=== PATIENT | male | born 1995 | race Caucasian/White ===

== ENCOUNTER 2017-08-25 22:20 | Inpatient (IN) ==
--- NOTE | 2017-08-25 22:33 | Emergency Department Note ---
Disposition Clinical Impression: Psychosis, Delusion Disposition: Transfer Psychiatric Hosp Time of Disposition: 03:25 Psych HPI - General Chief Complaint: ED Altered Mental Status Time Seen by Provider: 08/25/17 22:32 Source: EMS Mode of arrival: EMS Limitations: other Nursing Notes Reviewed: Yes Vital Signs Reviewed: Yes - History of Present Illness HPI Narrative: Patient presents to the ED with the chief complaint of apparent psychosis. Patient reports that he is a son of God and wants to spread his loved to the rest the world. 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 He states that he started reading from an early age and he "learned all of the knowledge in the world." He states he then started seeking knowledge from historical yarsanism references and "unlocked the keys to the kingdom." Denies any SI or HI. He states that he has used drugs in the past but none recently. Denies any complaints currently - Related Data Allergies Allergy/AdvReac Type Severity Reaction Status Date / Time No Known Allergies Allergy Verified 08/26/17 00:32 Review of Systems: As reviewed in the HPI. All other systems reviewed are negative or normal. Past Medical History - Past Medical History Attestation: Yes The following information was validated with the patient. Source: patient Medical history: Reports: no medical history Psychiatric history: Reports: ADHD - Social History Smoking Status: Current every day smoker Smokeless Tobacco Status: No Alcohol use: Reports: none Drug use: Reports: marijuana Physical Exam CONSTITUTIONAL: [well appearing in no acute distress] SKIN: [Warm, dry, and intact without rash] EYES: [extraocular movements are grossly intact, clear conjunctiva] HENT: [Normocephalic, atraumatic, moist mucus membranes] NECK: [no obvious swelling, normal range of motion] PULMONARY: [normal chest rise and fall, no respiratory distress or stridor CARDIOVASCULAR: [regular rate, distal extremities are warm and well perfused] NEUROLOGIC: [normal speech, moves all extremities] MUSCULOSKELETAL: [no gross deformities, atraumatic] PSYCHIATRIC: [Delusional, no auditory or visual hallucinations, poor eye contact , flight of ideas] - General Limitations: altered mental status General appearance: alert, anxious Course Course Narrative: Patient presenting with apparent psychosis. We will get labs and admit to psychiatry. Vital Signs Temperature 99.0 F 08/25/17 22:22 Pulse Rate 108 08/25/17 22:22 Respiratory Rate 22 08/25/17 22:22 Blood Pressure 143/103 08/25/17 22:22 O2 Sat by Pulse Oximetry 98 08/25/17 22:22 Temperature 98.0 F 08/26/17 04:35 Pulse Rate 70 08/26/17 04:35 Respiratory Rate 18 08/26/17 04:35 Blood Pressure 129/90 08/26/17 04:35 O2 Sat by Pulse Oximetry 97 08/25/17 23:45 Oxygen Delivery Oxygen Delivery Room Air Psych - Lab Data Result diagrams: 08/25/17 22:41 08/25/17 22:41 Lab Results 08/25/17 08/25/17 08/25/17 Range/Units 22:20 22:20 22:41 WBC 13.6 H (4.3-11.1) K/mcL RBC 5.78 H (4.19-5.50) M/mcL Hgb 15.0 (12.9-16.9) g/dL Hct 42.1 (37.5-50.1) % MCV 72.8 L (83.0-100.0) fL MCH 26.0 L (28.0-33.3) pg MCHC 35.6 H (31.6-35.5) g/dL RDW 13.0 (11.5-14.5) % Plt Count 417 H (140-400) K/mcL MPV 8.8 L (9.4-12.4) fL Immature Gran % 0.3 (0-4) % Seg Neutrophils % 74.5 % Lymphocytes % 19.5 % Monocytes % 5.4 % Eosinophils % 0.1 % Basophils % 0.2 % Neutrophils # 10.2 H (1.6-8.9) K/mcL Lymphocytes # 2.7 (0.6-4.6) K/mcL Monocytes # 0.7 (0.0-1.3) K/mcL Eosinophils # 0.0 (0.0-0.6) K/mcL Basophils # 0.0 (0.0-0.2) K/mcL Sodium (136-145) mEq/L Potassium (3.5-5.1) mEq/L Chloride (98-107) mEq/L Carbon Dioxide (23-29) mEq/L BUN (6-20) mg/dL Creatinine (0.70-1.30) mg/dL Est GFR ( Amer) (> 60) Est GFR (Non-Af Amer) (> 60) BUN/Creatinine Ratio (6-26) Glucose (70-105) mg/dL Calculated Osmolality (280-300) Calcium (8.6-10.3) mg/dL Urine Color Dark Yellow (Yellow) Urine Clarity Turbid A (Clear) Urine pH 6.5 (5.0-8.0) pH Units Ur Specific [place] 1.018 (1.010-1.025) Urine Protein 30 H (Neg-Trace) mg/dL Urine Glucose (UA) Normal (Normal) mg/dL Urine Ketones Negative (Negative) mg/dL Urine Blood Negative (Negative) Urine Nitrite Negative (Negative) Urine Bilirubin Negative (Negative) Urine Urobilinogen Normal (Normal) mg/dL Ur Leukocyte Esterase Negative (Negative) Urine Microscopic WBC 0-3 (0-3) per hpf Ur Squamous Epith Cells Moderate H (None-Few) per lpf Urine Bacteria None Seen (None-Few) per hpf Hyaline Casts Few (None-Few) per lpf Urine Mucus Many H (Few) Salicylates (15.0-30.0) mg/dL Urine Opiates Screen Negative (Eufidq=756) ng/mL Acetaminophen (10-20) mcg/mL Ur Barbiturates Screen Negative (Bpnuie=542) ng/mL Ur Phencyclidine Scrn Negative (Cutoff=25) ng/mL Ur Amphetamines Screen Negative (Ctbmgs=1826) ng/mL U Benzodiazepines Scrn Negative (Adrusz=828) ng/mL Urine Cocaine Screen Negative (Cutoff= 300) ng/mL U Marijuana (THC) Screen Positive H (Cutoff = 50) ng/mL Ethyl Alcohol (Less than 10) mg/dL 08/25/17 Range/Units 22:41 WBC (4.3-11.1) K/mcL RBC (4.19-5.50) M/mcL Hgb (12.9-16.9) g/dL Hct (37.5-50.1) % MCV (83.0-100.0) fL MCH (28.0-33.3) pg MCHC (31.6-35.5) g/dL RDW (11.5-14.5) % Plt Count (140-400) K/mcL MPV (9.4-12.4) fL Immature Gran % (0-4) % Seg Neutrophils % % Lymphocytes % % Monocytes % % Eosinophils % % Basophils % % Neutrophils # (1.6-8.9) K/mcL Lymphocytes # (0.6-4.6) K/mcL Monocytes # (0.0-1.3) K/mcL Eosinophils # (0.0-0.6) K/mcL Basophils # (0.0-0.2) K/mcL Sodium 136 (136-145) mEq/L Potassium 3.3 L (3.5-5.1) mEq/L Chloride 102 (98-107) mEq/L Carbon Dioxide 22 L (23-29) mEq/L BUN 4 L (6-20) mg/dL Creatinine 0.98 (0.70-1.30) mg/dL Est GFR ( Amer) > 60 (> 60) Est GFR (Non-Af Amer) > 60 (> 60) BUN/Creatinine Ratio 4 L (6-26) Glucose 103 (70-105) mg/dL Calculated Osmolality 279 L (280-300) Calcium 9.9 (8.6-10.3) mg/dL Urine Color (Yellow) Urine Clarity (Clear) Urine pH (5.0-8.0) pH Units Ur Specific [place] (1.010-1.025) Urine Protein (Neg-Trace) mg/dL Urine Glucose (UA) (Normal) mg/dL Urine Ketones (Negative) mg/dL Urine Blood (Negative) Urine Nitrite (Negative) Urine Bilirubin (Negative) Urine Urobilinogen (Normal) mg/dL Ur Leukocyte Esterase (Negative) Urine Microscopic WBC (0-3) per hpf Ur Squamous Epith Cells (None-Few) per lpf Urine Bacteria (None-Few) per hpf Hyaline Casts (None-Few) per lpf Urine Mucus (Few) Salicylates < 2.5 L (15.0-30.0) mg/dL Urine Opiates Screen (Pfxtyr=708) ng/mL Acetaminophen < 10 L (10-20) mcg/mL Ur Barbiturates Screen ([place]=812) ng/mL Ur Phencyclidine Scrn (Cutoff=25) ng/mL Ur Amphetamines Screen ([place]=0596) ng/mL U Benzodiazepines Scrn (Zsfdgc=792) ng/mL Urine Cocaine Screen (Cutoff= 300) ng/mL U Marijuana (THC) Screen (Cutoff = 50) ng/mL Ethyl Alcohol < 10 (Less than 10) mg/dL Psychiatric Medical Clearance - Medical Clearance Checklist Medical History: No Social History Section defined Current Vitals: Last Vital Signs Temp 98.0 F 08/26/17 04:35 Pulse 70 08/26/17 04:35 Resp 18 08/26/17 04:35 BP 129/90 08/26/17 04:35 Pulse Ox 97 08/25/17 23:45 Psychiatric Lab Panel: Drug Levels and Toxicity 08/25/17 08/25/17 22:20 22:41 Urine Opiates Screen Negative Acetaminophen < 10 L Ur Barbiturates Screen Negative Ur Phencyclidine Scrn Negative Ur Amphetamines Screen Negative U Benzodiazepines Scrn Negative Urine Cocaine Screen Negative U Marijuana (THC) Screen Positive H Ethyl Alcohol < 10 Abnormal Labs: Abnormal lab results WBC 13.6 K/mcL (4.3-11.1) H 08/25/17 22:41 RBC 5.78 M/mcL (4.19-5.50) H 08/25/17 22:41 MCV 72.8 fL (83.0-100.0) L 08/25/17 22:41 MCH 26.0 pg (28.0-33.3) L 08/25/17 22:41 MCHC 35.6 g/dL (31.6-35.5) H 08/25/17 22:41 Plt Count 417 K/mcL (140-400) H 08/25/17 22:41 MPV 8.8 fL (9.4-12.4) L 08/25/17 22:41 Neutrophils # 10.2 K/mcL (1.6-8.9) H 08/25/17 22:41 Potassium 3.3 mEq/L (3.5-5.1) L 08/25/17 22:41 Carbon Dioxide 22 mEq/L (23-29) L 08/25/17 22:41 BUN 4 mg/dL (6-20) L 08/25/17 22:41 BUN/Creatinine Ratio 4 (6-26) L 08/25/17 22:41 Calculated Osmolality 279 (280-300) L 08/25/17 22:41 Urine Clarity Turbid (Clear) A 08/25/17 22:20 Urine Protein 30 mg/dL (Neg-Trace) H 08/25/17 22:20 Ur Squamous Epith Cells Moderate per lpf (None-Few) H 08/25/17 22:20 Urine Mucus Many (Few) H 08/25/17 22:20 Salicylates < 2.5 mg/dL (15.0-30.0) L 08/25/17 22:41 Acetaminophen < 10 mcg/mL (10-20) L 08/25/17 22:41 U Marijuana (THC) Screen Positive ng/mL (Cutoff = 50) H 08/25/17 22:20 Attestation Statement - Attestation Attestation: I examined this patient and my medical decision-making was reviewed with the Resident Physician. I agree with the documented findings, disposition and treatment plan as described except to the extent set forth below.
[2017-08-25 22:46] LABS: Bilirubin,Urine Negative (Negative); Blood,Urine Negative (Negative); Clarity,Urine Turbid (Clear); Color,Urine Dark Yellow (Yellow); Glucose,Urine (UA) Normal (Normal); Ketones,Urine Negative (Negative); Leukocyte Esterase,Urine Negative (Negative); Nitrite,Urine Negative (Negative); PH,Urine 6.5 pH Units (5.0-8.0); Protein,Urine 30 mg/dL (Neg-Trace); Specific Gravity,Urine 1.018 (1.010-1.025); Urobilinogen,Urine Normal (Normal)
[2017-08-25 22:48] LABS: Bacteria,Urine None Seen per hpf (None-Few); Hyaline Casts,Urine Few per lpf (None-Few); Squamous Epithelial Cell,Urine Moderate per lpf (None-Few); WBC,Urine 0-3 per hpf (0-3)
[2017-08-25 22:51] LABS: Basophils % 0.2 %; Eosinophils % 0.1 %; Hematocrit 42.1 % (37.5-50.1); Immature Granulocytes % 0.3 % (0-4); Lymphocytes # 2.7 K/mcL (0.6-4.6); Lymphocytes % 19.5 %; Mean Corpuscular HGB Conc 35.6 g/dL (31.6-35.5); Mean Corpuscular Volume 72.8 fL (83.0-100.0); Mean Platelet Volume 8.8 fL (9.4-12.4); Monocytes # 0.7 K/mcL (0.0-1.3); Monocytes % 5.4 %; Neutrophils # 10.2 K/mcL (1.6-8.9); Platelet Count 417 K/mcL (140-400); Red Blood Count 5.78 M/mcL (4.19-5.50); Segmented Neutrophils % 74.5 %
[2017-08-25 22:55] LABS: Amphetamine Screen,Urine Negative ng/mL (Cutoff=1000); Barbiturate Screen,Urine Negative ng/mL (Cutoff=200); Benzodiazepines Screen,Urine Negative ng/mL (Cutoff=200); Cannabinoid Screen,Urine Positive ng/mL (Cutoff = 50); Cocaine Screen,Urine Negative ng/mL (Cutoff= 300); Opiate Screen,Urine Negative ng/mL (Cutoff=300); Phencyclidine Screen,Urine Negative ng/mL (Cutoff=25)
[2017-08-25 22:59] LABS: Mucus,Urine Many (Few)
[2017-08-26 00:03] LABS: Acetaminophen < 10 mcg/mL (10-20); BUN/Creatinine Ratio 4 (6-26); Blood Urea Nitrogen 4 mg/dL (6-20); Calcium 9.9 mg/dL (8.6-10.3); Carbon Dioxide 22 mEq/L (23-29); Chloride 102 mEq/L (98-107); Ethanol < 10 mg/dL (Less than 10); Glucose 103 mg/dL (70-105); Osmolality,Calculated 279 (280-300); Potassium 3.3 mEq/L (3.5-5.1); Salicylate < 2.5 mg/dL (15.0-30.0); Sodium 136 mEq/L (136-145); eGFR For African Americans > 60 (> 60); eGFR For Non-African Americans > 60 (> 60)
[2017-08-26] MEDS ORDERED: *HR* LORazepam 2 MG/ML VIAL IM PRN (04:18)
[2017-08-26] MEDS ORDERED: Haloperidol Lactate 5 MG/ML VIAL IM PRN (04:18)
[2017-08-26] MEDS ORDERED: MOM Conc 10 ML UD.LIQ PO PRN (04:18)
[2017-08-26] MEDS ORDERED: Mag Hydrox/Al Hydrox/Simeth 30 ML UDC PO PRN (04:18)
[2017-08-26] MEDS ORDERED: *HR* LORazepam 1 MG TABLET PO PRN (04:18)
--- NOTE | 2017-08-26 05:15 | Emergency Department Note ---
Disposition Clinical Impression: Psychosis, Delusion Disposition: Transfer Psychiatric Hosp General Adult HPI - General Chief complaint: ED Altered Mental Status Stated complaint: AMS Time Seen by Provider: 08/25/17 22:32 Source: EMS Mode of arrival: EMS Limitations: altered mental status - History of Present Illness Pain Scale: 0 - Related Data Allergies Allergy/AdvReac Type Severity Reaction Status Date / Time No Known Allergies Allergy Verified 08/26/17 00:32 Past Medical History - Past Medical History Medical history: Reports: no medical history Surgical history: Reports: no surgical history Psychiatric history: Reports: ADHD - Social History Smoking Status: Current every day smoker Smokeless Tobacco Status: No Alcohol use: Reports: none Drug use: Reports: marijuana Physical Exam - General Limitations: altered mental status General appearance: alert, anxious Course Vital Signs Temperature 99.0 F 08/25/17 22:22 Pulse Rate 108 08/25/17 22:22 Respiratory Rate 22 08/25/17 22:22 Blood Pressure 143/103 08/25/17 22:22 O2 Sat by Pulse Oximetry 98 08/25/17 22:22 Temperature 98.0 F 08/26/17 04:35 Pulse Rate 70 08/26/17 04:35 Respiratory Rate 18 08/26/17 04:35 Blood Pressure 129/90 08/26/17 04:35 O2 Sat by Pulse Oximetry 97 08/25/17 23:45 Oxygen Delivery Oxygen Delivery Room Air Medical Decision Making - Lab Data Result diagrams: 08/25/17 22:41 08/25/17 22:41 Lab Results 08/25/17 08/25/17 08/25/17 Range/Units 22:20 22:20 22:41 WBC 13.6 H (4.3-11.1) K/mcL RBC 5.78 H (4.19-5.50) M/mcL Hgb 15.0 (12.9-16.9) g/dL Hct 42.1 (37.5-50.1) % MCV 72.8 L (83.0-100.0) fL MCH 26.0 L (28.0-33.3) pg MCHC 35.6 H (31.6-35.5) g/dL RDW 13.0 (11.5-14.5) % Plt Count 417 H (140-400) K/mcL MPV 8.8 L (9.4-12.4) fL Immature Gran % 0.3 (0-4) % Seg Neutrophils % 74.5 % Lymphocytes % 19.5 % Monocytes % 5.4 % Eosinophils % 0.1 % Basophils % 0.2 % Neutrophils # 10.2 H (1.6-8.9) K/mcL Lymphocytes # 2.7 (0.6-4.6) K/mcL Monocytes # 0.7 (0.0-1.3) K/mcL Eosinophils # 0.0 (0.0-0.6) K/mcL Basophils # 0.0 (0.0-0.2) K/mcL Sodium (136-145) mEq/L Potassium (3.5-5.1) mEq/L Chloride (98-107) mEq/L Carbon Dioxide (23-29) mEq/L BUN (6-20) mg/dL Creatinine (0.70-1.30) mg/dL Est GFR ( Amer) (> 60) Est GFR (Non-Af Amer) (> 60) BUN/Creatinine Ratio (6-26) Glucose (70-105) mg/dL Calculated Osmolality (280-300) Calcium (8.6-10.3) mg/dL Urine Color Dark Yellow (Yellow) Urine Clarity Turbid A (Clear) Urine pH 6.5 (5.0-8.0) pH Units Ur Specific [place] 1.018 (1.010-1.025) Urine Protein 30 H (Neg-Trace) mg/dL Urine Glucose (UA) Normal (Normal) mg/dL Urine Ketones Negative (Negative) mg/dL Urine Blood Negative (Negative) Urine Nitrite Negative (Negative) Urine Bilirubin Negative (Negative) Urine Urobilinogen Normal (Normal) mg/dL Ur Leukocyte Esterase Negative (Negative) Urine Microscopic WBC 0-3 (0-3) per hpf Ur Squamous Epith Cells Moderate H (None-Few) per lpf Urine Bacteria None Seen (None-Few) per hpf Hyaline Casts Few (None-Few) per lpf Urine Mucus Many H (Few) Salicylates (15.0-30.0) mg/dL Urine Opiates Screen Negative (Svfjwg=553) ng/mL Acetaminophen (10-20) mcg/mL Ur Barbiturates Screen Negative (Xcnxef=707) ng/mL Ur Phencyclidine Scrn Negative (Cutoff=25) ng/mL Ur Amphetamines Screen Negative (Votfwx=9941) ng/mL U Benzodiazepines Scrn Negative (Lpzyil=786) ng/mL Urine Cocaine Screen Negative (Cutoff= 300) ng/mL U Marijuana (THC) Screen Positive H (Cutoff = 50) ng/mL Ethyl Alcohol (Less than 10) mg/dL 08/25/17 Range/Units 22:41 WBC (4.3-11.1) K/mcL RBC (4.19-5.50) M/mcL Hgb (12.9-16.9) g/dL Hct (37.5-50.1) % MCV (83.0-100.0) fL MCH (28.0-33.3) pg MCHC (31.6-35.5) g/dL RDW (11.5-14.5) % Plt Count (140-400) K/mcL MPV (9.4-12.4) fL Immature Gran % (0-4) % Seg Neutrophils % % Lymphocytes % % Monocytes % % Eosinophils % % Basophils % % Neutrophils # (1.6-8.9) K/mcL Lymphocytes # (0.6-4.6) K/mcL Monocytes # (0.0-1.3) K/mcL Eosinophils # (0.0-0.6) K/mcL Basophils # (0.0-0.2) K/mcL Sodium 136 (136-145) mEq/L Potassium 3.3 L (3.5-5.1) mEq/L Chloride 102 (98-107) mEq/L Carbon Dioxide 22 L (23-29) mEq/L BUN 4 L (6-20) mg/dL Creatinine 0.98 (0.70-1.30) mg/dL Est GFR ( Amer) > 60 (> 60) Est GFR (Non-Af Amer) > 60 (> 60) BUN/Creatinine Ratio 4 L (6-26) Glucose 103 (70-105) mg/dL Calculated Osmolality 279 L (280-300) Calcium 9.9 (8.6-10.3) mg/dL Urine Color (Yellow) Urine Clarity (Clear) Urine pH (5.0-8.0) pH Units Ur Specific [place] (1.010-1.025) Urine Protein (Neg-Trace) mg/dL Urine Glucose (UA) (Normal) mg/dL Urine Ketones (Negative) mg/dL Urine Blood (Negative) Urine Nitrite (Negative) Urine Bilirubin (Negative) Urine Urobilinogen (Normal) mg/dL Ur Leukocyte Esterase (Negative) Urine Microscopic WBC (0-3) per hpf Ur Squamous Epith Cells (None-Few) per lpf Urine Bacteria (None-Few) per hpf Hyaline Casts (None-Few) per lpf Urine Mucus (Few) Salicylates < 2.5 L (15.0-30.0) mg/dL Urine Opiates Screen (Ojsbbr=641) ng/mL Acetaminophen < 10 L (10-20) mcg/mL Ur Barbiturates Screen (Jfwzcs=546) ng/mL Ur Phencyclidine Scrn (Cutoff=25) ng/mL Ur Amphetamines Screen (Agicvk=1847) ng/mL U Benzodiazepines Scrn (Iyafbr=598) ng/mL Urine Cocaine Screen (Cutoff= 300) ng/mL U Marijuana (THC) Screen (Cutoff = 50) ng/mL Ethyl Alcohol < 10 (Less than 10) mg/dL Attestation Statement - Attestation Attestation: I examined this patient and my medical decision-making was reviewed with the Resident Physician. I agree with the documented findings, disposition and treatment plan as described except to the extent set forth below. 22-year-old male presents ED because of ongoing hallucinations. He has delusions of grandeur as well as occasional auditory hallucinations. No suicidal or homicidal ideations. Denies recent medical complaints. No fevers chills. No head injury. He has no history of psychosis. He does use marijuana on a daily basis. Denies any stimulant medications Well-appearing, tearful male in no apparent physiologic distress. He is awake alert. He was equal and reactive to light. He is membranes are dry. Neck is supple. Chest is clear to auscultation bilaterally. Cardiac exam regular, tachycardic. Abdomen soft and nontender. Extremities warm and dry. Neurologic exam is nonfocal. He is medically cleared and underwent psychiatric evaluation and it was determined he would be best treated on an inpatient psychiatric facility.
--- NOTE | 2017-08-26 12:51 | Psychiatry History & Physical ---
Date of Encounter: 08/26/17 Time of Encounter: 12:46 History of Present Illness Patient Stated Chief Complaint: Psychosis Medicare Admission Attestation: For traditional Medicare patients the provided hospital inpatient services are reasonable and necessary and in the case of services not specified as inpatient -only under 42 CFR 419.22 (n), that they are appropriately provided as inpatient services in accordance 42 CFR 412.3. For Critical Access Hospital the patient may reasonably be expected to be discharged or transferred to a hospital within 96 hours after admission to the Critical Access Hospital. Admitted From: Emergency Dept History of Present Illness: Mr. Ontiveros is a 22 year old male admitted from the ED for acute psychosis with delusion, hallucinations and anabaptist preoccupation. Patient was picked up by police from the community and brought in for evaluation. Patient is extremely psychotic and paranoid making statements. My music was stolen, I am the son of God, people are going to hell, I want to save the world. UDS was positive for THC. Patient denied any previous history of psychiatric treatment. He lives on his own, is homeless, no support. Would not talk about his family or friends because everybody lied to him. 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 Patient was difficult to interview redirect. Past Med Surg Social Fam HX - Past Medical History Medical history: no medical history - Past Psychiatric History Psychiatric history: Reports: no psych history - Past Surgical History Surgical History: no surgical history - Social History Smoking Status: Current every day smoker Smokeless Tobacco Status: No Alcohol use: none Drug use: marijuana Medications & Allergies 3 Allergy/AdvReac Type Severity Reaction Status Date / Time No Known Allergies Allergy Verified 08/26/17 00:32 Review of Systems Psychiatric: Reports: auditory hallucinations, visual hallucinations, other ( Delusions) Exam - HEENT Head exam IM: Present: atraumatic Eye exam IM: Present: EOMI, normal appearance, PERRL ENT exam IM: Present: normal exam - Neurological Neurological exam: Present: CN II-XII intact - Respiratory Respiratory exam IM: Present: CTAB - GI/Abdominal GI/Abdominal exam IM: Present: normal bowel sounds, soft. Absent: tenderness - Extremities Extremities exam IM: Present: full ROM - Skin Skin exam IM: Present: dry, warm - Constitutional Vitals: Temp Pulse Resp BP Pulse Ox 98.7 F 51 14 121/59 97 08/26/17 09:00 08/26/17 09:00 08/26/17 09:00 08/26/17 09:00 08/25/17 23:45 General appearance: age & developmentally appropriate, well-groomed, well- nourished, thin - Musculoskeletal Gait: normal Station: relaxed Strength & Tone: normal for patient - Psychiatric Patient Orientation: Yes Person, Yes Time, Yes Place Level of alertness: Alert Behavior: cooperative, agitated, talkative, dramatic Psychomotor activity: Increased Eye Contact: Fleeting Contact Mood Description: Labile, Irritable Affect description: congruent with mood, labile, dysphoric Speech Volume: Loud Speech pattern: normal rate, normal rhythm, normal tone, fluent, spontaneous, disorganized, excessive, pressured, repetetive Language & Vocabulary: consistent with education Thought Process: Loose Associations, Tangential, Flight of Ideas, Disorganized, Racing Thought Content: No Suicidal ideation, No Homicidal ideation, No Overt delusions Perceptual Disturbances: Yes Auditory hallucinations, Yes Visual hallucinations Attention Span Ability: Unable to Focus Memory Description: Grossly Intact Patient Reliability: Questionable Historian Fund of knowledge: Yes abstraction ability, Yes average, Yes aware of current events Intelligence Estimate: Average Judgment: Limited Insight: Partial Results - Labs Labs: Laboratory Last Values WBC 13.6 K/mcL (4.3-11.1) H 08/25/17 22:41 RBC 5.78 M/mcL (4.19-5.50) H 08/25/17 22:41 Hgb 15.0 g/dL (12.9-16.9) 08/25/17 22:41 Hct 42.1 % (37.5-50.1) 08/25/17 22:41 MCV 72.8 fL (83.0-100.0) L 08/25/17 22:41 MCH 26.0 pg (28.0-33.3) L 08/25/17 22:41 MCHC 35.6 g/dL (31.6-35.5) H 08/25/17 22:41 RDW 13.0 % (11.5-14.5) 08/25/17 22:41 Plt Count 417 K/mcL (140-400) H 08/25/17 22:41 MPV 8.8 fL (9.4-12.4) L 08/25/17 22:41 Immature Gran % 0.3 % (0-4) 08/25/17 22:41 Seg Neutrophils % 74.5 % 08/25/17 22:41 Lymphocytes % 19.5 % 08/25/17 22:41 Monocytes % 5.4 % 08/25/17 22:41 Eosinophils % 0.1 % 08/25/17 22:41 Basophils % 0.2 % 08/25/17 22:41 Neutrophils # 10.2 K/mcL (1.6-8.9) H 08/25/17 22:41 Lymphocytes # 2.7 K/mcL (0.6-4.6) 08/25/17 22:41 Monocytes # 0.7 K/mcL (0.0-1.3) 08/25/17 22:41 Eosinophils # 0.0 K/mcL (0.0-0.6) 08/25/17 22:41 Basophils # 0.0 K/mcL (0.0-0.2) 08/25/17 22:41 Sodium 136 mEq/L (136-145) 08/25/17 22:41 Potassium 3.3 mEq/L (3.5-5.1) L 08/25/17 22:41 Chloride 102 mEq/L (98-107) 08/25/17 22:41 Carbon Dioxide 22 mEq/L (23-29) L 08/25/17 22:41 BUN 4 mg/dL (6-20) L 08/25/17 22:41 Creatinine 0.98 mg/dL (0.70-1.30) 08/25/17 22:41 Est GFR ( Amer) > 60 (> 60) 08/25/17 22:41 Est GFR (Non-Af Amer) > 60 (> 60) 08/25/17 22:41 BUN/Creatinine Ratio 4 (6-26) L 08/25/17 22:41 Glucose 103 mg/dL (70-105) 08/25/17 22:41 Calculated Osmolality 279 (280-300) L 08/25/17 22:41 Calcium 9.9 mg/dL (8.6-10.3) 08/25/17 22:41 Urine Color Dark Yellow (Yellow) 08/25/17 22:20 Urine Clarity Turbid (Clear) A 05/31/18 22:20 Urine pH 6.5 pH Units (5.0-8.0) 08/25/17 22:20 Ur Specific [place] 1.018 (1.010-1.025) 08/25/17 22:20 Urine Protein 30 mg/dL (Neg-Trace) H 08/25/17 22:20 Urine Glucose (UA) Normal mg/dL (Normal) 08/25/17 22:20 Urine Ketones Negative mg/dL (Negative) 08/25/17 22:20 Urine Blood Negative (Negative) 08/25/17 22:20 Urine Nitrite Negative (Negative) 08/25/17 22:20 Urine Bilirubin Negative (Negative) 08/25/17 22:20 Urine Urobilinogen Normal mg/dL (Normal) 08/25/17 22:20 Ur Leukocyte Esterase Negative (Negative) 08/25/17 22:20 Urine Microscopic WBC 0-3 per hpf (0-3) 08/25/17 22:20 Ur Squamous Epith Cells Moderate per lpf (None-Few) H 08/25/17 22:20 Urine Bacteria None Seen per hpf (None-Few) 08/25/17 22:20 Hyaline Casts Few per lpf (None-Few) 08/25/17 22:20 Urine Mucus Many (Few) H 08/25/17 22:20 Salicylates < 2.5 mg/dL (15.0-30.0) L 08/25/17 22:41 Urine Opiates Screen Negative ng/mL (Kmdmys=471) 08/25/17 22:20 Acetaminophen < 10 mcg/mL (10-20) L 08/25/17 22:41 Ur Barbiturates Screen Negative ng/mL (Apwpqt=276) 08/25/17 22:20 Ur Phencyclidine Scrn Negative ng/mL (Cutoff=25) 08/25/17 22:20 Ur Amphetamines Screen Negative ng/mL (Cjlkzs=7131) 08/25/17 22:20 U Benzodiazepines Scrn Negative ng/mL (Diwsud=059) 08/25/17 22:20 Urine Cocaine Screen Negative ng/mL (Cutoff= 300) 08/25/17 22:20 U Marijuana (THC) Screen Positive ng/mL (Cutoff = 50) H 08/25/17 22:20 Ethyl Alcohol < 10 mg/dL (Less than 10) 08/25/17 22:41 Assessment and Plan (1) Drug-induced psychotic disorder with delusions Current visit: Yes Status: Acute Plan: Admit inpatient for safety and stabilization, Close observation, Suicide Precautions per unit protocol, Encourage participation in unit milieu, Group Therapy, Monitor sleep, Monitor appetite Risks, benefits, side effects, alternatives discussed w/pt: Yes Patient agreeable to treatment: Yes
[2017-08-26] MEDS: OLANZapine 5 MG TAB.RAPDIS PO SCH ×2 (14:10→21:43)
[2017-08-26] MEDS: traZODone 50 MG TABLET PO PRN (21:43)
[2017-08-27] MEDS: OLANZapine 5 MG TAB.RAPDIS PO SCH ×2 (09:55→21:59)
--- NOTE | 2017-08-27 12:09 | Psychiatry Progress Note ---
Date of Encounter: 08/27/17 Time of Encounter: 12:07 Subjective Interval history: Patient seen for follow-up. Case discussed was nursing staff. Staff report patient slept through the night. He is not presenting any paranoia or delusions. He is cooperative and compliant with medication. Speech in conversation logical. Denied any suicidal ideation or hallucinations. Participating group activities. No agitation. Review of Systems Psychiatric: Reports: auditory hallucinations, visual hallucinations, other ( Delusions) Results - Vital Signs Vital Signs: Temp Pulse Resp BP Pulse Ox 98.0 F 103 16 135/92 97 08/27/17 09:00 08/27/17 09:00 08/27/17 09:00 08/27/17 09:00 08/25/17 23:45 Assessment and Plan (1) Drug-induced psychotic disorder with delusions Current visit: Yes Status: Acute Plan: Continue hospitalization, Close observation, Suicide Precautions per unit protocol, Encourage participation in unit milieu, Group Therapy, Monitor sleep, Monitor appetite Risks, benefits, side effects, alternatives discussed w/pt: Yes Patient agreeable to treatment: Yes Consult Discharge Plan - Plan Referrals: NONE,PCP [Primary Care Provider] - Psychiatry Exam - Constitutional Vitals: Temp Pulse Resp BP Pulse Ox 98.0 F 103 16 135/92 97 08/27/17 09:00 08/27/17 09:00 08/27/17 09:00 08/27/17 09:00 08/25/17 23:45 General appearance: age & developmentally appropriate, well-groomed, well- nourished - Musculoskeletal Gait: normal Station: relaxed Strength & Tone: normal for patient - Psychiatric Patient Orientation: Yes Person, Yes Time, Yes Place Level of alertness: Alert Behavior: calm, cooperative, anxious Psychomotor activity: Normal Eye Contact: Maintains Eye Contact Mood Description: Euthymic/stable, Anxious Affect description: congruent with mood, full range Speech Volume: Normal Speech pattern: normal rate, normal rhythm, normal tone, fluent, spontaneous Language & Vocabulary: consistent with education Thought Process: Linear, Goal Oriented Thought Content: No Suicidal ideation, No Homicidal ideation, No Overt delusions , Yes Jain delusion, Yes Grandiose delusion Perceptual Disturbances: No Auditory hallucinations, No Visual hallucinations Attention Span Ability: Capable of Focused Attention Memory Description: Grossly Intact Patient Reliability: Reliable Historian Fund of knowledge: Yes abstraction ability, Yes aware of current events Intelligence Estimate: Average Judgment: Limited Insight: Partial
[2017-08-27] MEDS: Acetaminophen 325 MG TABLET PO PRN (21:59)
[2017-08-27] MEDS: hydrOXYzine pamoate 25 MG CAPSULE PO PRN (21:59)
[2017-08-27] MEDS: traZODone 50 MG TABLET PO PRN (22:00)
[2017-08-28] MEDS: OLANZapine 5 MG TAB.RAPDIS PO SCH (09:18)
--- NOTE | 2017-08-28 12:02 | Psychiatry Progress Note ---
Date of Encounter: 08/28/17 Time of Encounter: 11:20 Subjective Interval history: Patient seen for follow-up. Case discussed with nursing staff. Staff report patient is showing delusional speech and paranoia, token about being somehow got token about his music stolen by also people, he also asked me if I would review his will and approve it. Nursing staff reports he had some agitation in group for medication education and he was redirected. Review of Systems Psychiatric: Reports: auditory hallucinations, visual hallucinations, other ( Delusions) Results - Vital Signs Vital Signs: Temp Pulse Resp BP Pulse Ox 98.6 F 79 16 142/92 97 08/28/17 09:00 08/28/17 09:00 08/28/17 09:00 08/28/17 09:00 08/25/17 23:45 Assessment and Plan (1) Drug-induced psychotic disorder with delusions Current visit: Yes Status: Acute Plan: Continue hospitalization, Close observation, Suicide Precautions per unit protocol, Encourage participation in unit milieu, Group Therapy, Monitor sleep, Monitor appetite Additional Plan: Change olanzapine to 5 mg every morning and 10 mg at bedtime Risks, benefits, side effects, alternatives discussed w/pt: Yes Patient agreeable to treatment: Yes Consult Discharge Plan - Plan Referrals: NONE,PCP [Primary Care Provider] - Psychiatry Exam - Constitutional Vitals: Temp Pulse Resp BP Pulse Ox 98.6 F 79 16 142/92 97 08/28/17 09:00 08/28/17 09:00 08/28/17 09:00 08/28/17 09:00 08/25/17 23:45 General appearance: age & developmentally appropriate, well-groomed, well- nourished, bizarre, thin - Musculoskeletal Gait: normal Station: relaxed Strength & Tone: normal for patient - Psychiatric Patient Orientation: Yes Person, Yes Time, Yes Place Level of alertness: Alert Behavior: cooperative, nervous, suspicious, impulsive Psychomotor activity: Normal Eye Contact: Maintains Eye Contact Mood Description: Euthymic/stable, Labile, Irritable Affect description: congruent with mood, labile Speech Volume: Normal Speech pattern: normal rate, normal rhythm, normal tone, fluent, spontaneous, disorganized Language & Vocabulary: consistent with education Thought Process: Goal Oriented, Loose Associations, Flight of Ideas Thought Content: No Suicidal ideation, No Homicidal ideation, No Overt delusions , Yes Ideas of reference, Yes Preoccupation, Yes Paranoid delusion, Yes Mormonism delusion, Yes Grandiose delusion Perceptual Disturbances: No Auditory hallucinations, No Visual hallucinations Attention Span Ability: Capable of Focused Attention Memory Description: Grossly Intact Patient Reliability: Questionable Historian Fund of knowledge: Yes abstraction ability, Yes aware of current events Intelligence Estimate: Average Judgment: Limited Insight: Partial
[2017-08-28] MEDS: OLANZapine 10 MG TAB.RAPDIS PO SCH (21:31)
[2017-08-29] MEDS: OLANZapine 5 MG TAB.RAPDIS PO SCH (09:05)
--- NOTE | 2017-08-29 11:25 | Psychiatry Progress Note ---
Date of Encounter: 08/29/17 Time of Encounter: 11:15 Subjective Interval history: When asked the patient how he was doing he told me "pretty good, pretty good". He goes on to say "I hear every and see everyone's pain. I am here to get help I do not know what I am supposed to do to keep my word with God. I chose to have 7 people to hold me to that truth". I asked him what he meant by those things and he states that he had lied before about being in the and light before about having cancer. He states that he is being punished for that is a son and is trying to make amends for those things now. He continues to talk about "you cannot be set free till your soul dies". I asked him what that means, Do you want to ? He states "we all in the end, but until you you cannot be free". Then he stated "the gomez of freedom is ". He went on to say that he does want to because he is "the son of God". When I asked him if he thought he really was Reinaldo Lombardo he stated, "No. I do not believe I'm Grupo, but all of us are the sons and daughters of God." He went on them to talk about how he was upset the people stole his music. And how his music could have saved the world. He talked about writing a will out based on the word of the Bible and that he was doing that to make amends. When asked about mental health issues, he denied having a mental health issues. He stated that he was taking the medication, and that it was helpful in having him be calmer and that "I'm sleeping great now". I asked him about having thoughts of people wanting to hurt him, he stated he had no thoughts of that. I asked him about his family of origin issues, anybody in his family had mental health history he told me that he did not know his biological father. But denied any mental health issues on his mother's side of the family. He denied being actively suicidal or homicidal at this time. He does state that he hears voices of "everyone's pain". He is going to continue taking Zyprexa at this time. Review of Systems Psychiatric: Reports: auditory hallucinations, visual hallucinations, other ( Delusions) Results - Vital Signs Vital Signs: Temp Pulse Resp BP Pulse Ox 97.3 F L 57 14 122/67 97 08/29/17 09:00 08/29/17 09:00 08/29/17 09:00 08/29/17 09:00 08/25/17 23:45 Assessment and Plan (1) Psychosis Current visit: Yes Status: Acute Plan: Continue hospitalization, Close observation, Suicide Precautions per unit protocol, Encourage participation in unit milieu, Group Therapy, Monitor sleep Risks, benefits, side effects, alternatives discussed w/pt: Yes (Contiue Zyprexa) Patient agreeable to treatment: Yes (But does not believe he needs it.) Qualifiers: Psychosis type: unspecified psychosis type Qualified Code(s): F29 - Unspecified psychosis not due to a substance or known physiological condition Consult Discharge Plan - Plan Referrals: NONE,PCP [Primary Care Provider] - Psychiatry Exam - Constitutional Vitals: Temp Pulse Resp BP Pulse Ox 97.3 F L 57 14 122/67 97 08/29/17 09:00 08/29/17 09:00 08/29/17 09:00 08/29/17 09:00 08/25/17 23:45 General appearance: age & developmentally appropriate - Musculoskeletal Gait: normal Station: other Strength & Tone: normal for patient - Psychiatric Patient Orientation: Yes Person, Yes Time, Yes Place Level of alertness: Alert Behavior: nervous, anxious, agitated (mildly) Psychomotor activity: Increased Eye Contact: Intense Contact Mood Description: Elevated Affect description: congruent with mood Speech Volume: Normal Speech pattern: normal rate, normal rhythm, normal tone Language & Vocabulary: consistent with education Thought Process: Loose Associations, Tangential Thought Content: Yes Anabaptism delusion Attention Span Ability: Capable of Focused Attention Memory Description: Remote Impaired Patient Reliability: Questionable Historian Fund of knowledge: Yes aware of current events Intelligence Estimate: Average Judgment: Limited Insight: Minimal
[2017-08-29] MEDS: OLANZapine 10 MG TAB.RAPDIS PO SCH (20:30)
[2017-08-30] MEDS: Acetaminophen 325 MG TABLET PO PRN (08:19)
[2017-08-30] MEDS: OLANZapine 5 MG TAB.RAPDIS PO SCH (08:20)
--- NOTE | 2017-08-30 16:12 | Psychiatry Progress Note ---
Date of Encounter: 08/30/17 Time of Encounter: 15:50 Subjective Interval history: Patient is talking further about his needing to make a will and make amends and get right with God. He talks about how humanity is suffering for their sins and their love of money. He states that he does not have a mental health issue and that he can prove that when he finishes as will and confession to his crimes and sins. I asked him about crimes and sins, he states that he is referring to lying about being in the and lying about having cancer. He denies any adverse side effects Zyprexa. He tells me that he is sleeping great now and he feels calmer. Then he continues to state that he does not need medications cause he does not have a mental health problem. He was willing to listen. I talked about increasing his dose in the morning. He said he was agreeable to that. He went on to say though that I "could increase the medication all you want, as much as you want. It will never change me. I am right and good with God." He denied any suicidal/homicidal ideation. Review of Systems Psychiatric: Reports: auditory hallucinations, visual hallucinations, other ( Delusions) Results - Vital Signs Vital Signs: Temp Pulse Resp BP Pulse Ox 98.2 F 77 16 141/82 97 08/30/17 09:00 08/30/17 09:00 08/30/17 09:00 08/30/17 09:00 08/25/17 23:45 Assessment and Plan (1) Psychosis Current visit: Yes Status: Acute Risks, benefits, side effects, alternatives discussed w/pt: Yes (Increase Zyprexa dosing to 10 mg po bid) Patient agreeable to treatment: Yes (But does not believe he needs it.) Qualifiers: Psychosis type: unspecified psychosis type Qualified Code(s): F29 - Unspecified psychosis not due to a substance or known physiological condition Consult Discharge Plan - Plan Referrals: NONE,PCP [Primary Care Provider] - Psychiatry Exam - Constitutional Vitals: Temp Pulse Resp BP Pulse Ox 98.2 F 77 16 141/82 97 08/30/17 09:00 08/30/17 09:00 08/30/17 09:00 08/30/17 09:00 08/25/17 23:45 General appearance: age & developmentally appropriate, disheveled - Musculoskeletal Gait: normal Station: erect Strength & Tone: normal for patient - Psychiatric Patient Orientation: Yes Person, Yes Time, Yes Place Level of alertness: Alert Behavior: agitated Psychomotor activity: Normal Eye Contact: Fleeting Contact Mood Description: Elevated Affect description: labile (mildly) Speech Volume: Normal Speech pattern: normal rate, normal rhythm Language & Vocabulary: consistent with education Thought Process: Perseveration Thought Content: Yes Caodaism delusion Attention Span Ability: Capable of Focused Attention Memory Description: Remote Impaired Patient Reliability: Questionable Historian Fund of knowledge: Yes aware of current events Intelligence Estimate: Average Judgment: Limited Insight: Minimal
[2017-08-30] MEDS: hydrOXYzine pamoate 25 MG CAPSULE PO PRN (20:28)
[2017-08-30] MEDS: OLANZapine 10 MG TAB.RAPDIS PO SCH (20:28)
[2017-08-30] MEDS: traZODone 50 MG TABLET PO PRN (20:28)
[2017-08-31] MEDS: OLANZapine 10 MG TAB.RAPDIS PO SCH ×2 (08:08→20:31)
--- NOTE | 2017-08-31 10:06 | Psychiatry Progress Note ---
Date of Encounter: 08/31/17 Time of Encounter: 08:50 Subjective Interval history: Patient tells me "I feel fine". He received an increased dose of Zyprexa and denied and any side effects. He states "It helps calm me down and slow me down. " He contends that he does not have a mental health diagnosis. "I've been like this my whole life. Its just who I am". Treatment team was able to gather collateral information with consent. local intermodal truck driver friends state they have seen very bizarre changes in his behaviour in the past 9-12 months. He states he will be vindicated and released from the police arrest once he presents his ' will" and paperwork showing his apology. He denies making threats and does not understand what the police are holding him for. He gets frustrated and increased in anxiety in talking about it. He speaks less of his methodist thoughts today. He denies suicidal/homicidal ideation. He denies hallucinations. Review of Systems Psychiatric: Reports: auditory hallucinations, visual hallucinations, other ( Delusions) Results - Vital Signs Vital Signs: Temp Pulse Resp BP Pulse Ox 98.2 F 76 16 121/75 97 08/31/17 09:00 08/31/17 09:00 08/31/17 09:00 08/31/17 09:00 08/25/17 23:45 Assessment and Plan (1) Psychosis Current visit: Yes Status: Acute Plan: Continue hospitalization, Close observation, Encourage participation in unit milieu, Group Therapy, Monitor sleep Risks, benefits, side effects, alternatives discussed w/pt: Yes (Continue Zyprexa as written) Patient agreeable to treatment: Yes (But does not believe he needs it.) Qualifiers: Psychosis type: unspecified psychosis type Qualified Code(s): F29 - Unspecified psychosis not due to a substance or known physiological condition Consult Discharge Plan - Plan Referrals: NONE,PCP [Primary Care Provider] - Psychiatry Exam - Constitutional Vitals: Temp Pulse Resp BP Pulse Ox 98.2 F 76 16 121/75 97 08/31/17 09:00 08/31/17 09:00 08/31/17 09:00 08/31/17 09:00 08/25/17 23:45 General appearance: age & developmentally appropriate - Musculoskeletal Gait: normal Station: stiff Strength & Tone: normal for patient - Psychiatric Patient Orientation: Yes Person, Yes Time Level of alertness: Alert Behavior: guarded Psychomotor activity: Normal Eye Contact: Fleeting Contact Mood Description: Anxious, Elevated Affect description: labile (mildly) Speech Volume: Normal Speech pattern: normal rate, normal rhythm Language & Vocabulary: consistent with education Thought Process: Tangential Thought Content: Yes Hoahaoism delusion, Yes Grandiose delusion (mild) Attention Span Ability: Unable to Focus Memory Description: Recent Impaired Patient Reliability: Not Reliable Historian Intelligence Estimate: Average Judgment: Limited Insight: Minimal
[2017-08-31] MEDS: traZODone 50 MG TABLET PO PRN (20:31)
[2017-08-31] MEDS: hydrOXYzine pamoate 25 MG CAPSULE PO PRN (20:31)
[2017-09-01] MEDS: OLANZapine 10 MG TAB.RAPDIS PO SCH ×2 (08:39→20:14)
--- NOTE | 2017-09-01 10:11 | Psychiatry Progress Note ---
Date of Encounter: 09/01/17 Time of Encounter: 10:00 Subjective Interval history: Patient denies having any issues at this time. He states that he continues to sleep well. He denies any side effects of the medication. He continues to reiterate that he feels better every day and he is "not spinning as much as I had been". He states he feels calmer. He is talking about dealing with his legal issues once he gets out. He does not talk about any evangelical issues at all. He does not talk about his music that was stolen. He appears to be less grandiose and much less religiously preoccupied. He states of continue to take the medication. We talked about him saying that he 'has been like this is whole life' and that the medication makes him feel better. Then why would he not take it or think that he has a mental health issue that he needs medications for. He replied back to me "good point". He denies any suicidal/ homicidal ideation. He denies any auditory/visual hallucinations. Review of Systems Psychiatric: Reports: auditory hallucinations, visual hallucinations, other ( Delusions) Results - Vital Signs Vital Signs: Temp Pulse Resp BP Pulse Ox 97.3 F L 74 16 128/79 97 09/01/17 09:00 09/01/17 09:00 09/01/17 09:00 09/01/17 09:00 08/25/17 23:45 Assessment and Plan (1) Psychosis Current visit: Yes Status: Acute Plan: Continue hospitalization, Close observation, Encourage participation in unit milieu, Group Therapy, Monitor sleep, Family/Supportive other meeting Risks, benefits, side effects, alternatives discussed w/pt: Yes (Continue Zyprexa as written. New lab ordered to check Chemistry, CBC, UA.) Patient agreeable to treatment: Yes Qualifiers: Psychosis type: unspecified psychosis type Qualified Code(s): F29 - Unspecified psychosis not due to a substance or known physiological condition Consult Discharge Plan - Plan Referrals: NONE,PCP [Primary Care Provider] - Psychiatry Exam - Constitutional Vitals: Temp Pulse Resp BP Pulse Ox 97.3 F L 74 16 128/79 97 09/01/17 09:00 09/01/17 09:00 09/01/17 09:00 09/01/17 09:00 08/25/17 23:45 General appearance: age & developmentally appropriate - Musculoskeletal Gait: normal Station: relaxed Strength & Tone: normal for patient - Psychiatric Patient Orientation: Yes Person, Yes Time, Yes Place, Yes Circumstance Level of alertness: Alert Behavior: calm, cooperative Psychomotor activity: Normal Eye Contact: Maintains Eye Contact Mood Description: Euthymic/stable Affect description: congruent with mood Speech Volume: Normal Speech pattern: normal rate, normal rhythm, normal tone Language & Vocabulary: consistent with education Thought Process: Intact Attention Span Ability: Capable of Focused Attention Memory Description: Recent Impaired Patient Reliability: Questionable Historian Fund of knowledge: Yes abstraction ability Intelligence Estimate: Average Judgment: Fair Insight: Partial
[2017-09-01 10:57] LABS: Bilirubin,Urine Negative (Negative); Blood,Urine Negative (Negative); Clarity,Urine Clear (Clear); Color,Urine Yellow (Yellow); Glucose,Urine (UA) Normal (Normal); Ketones,Urine Negative (Negative); Leukocyte Esterase,Urine Negative (Negative); Nitrite,Urine Negative (Negative); PH,Urine 6.5 pH Units (5.0-8.0); Protein,Urine Negative (Neg-Trace); Specific Gravity,Urine 1.012 (1.010-1.025); Urobilinogen,Urine Normal (Normal)
[2017-09-01 11:00] LABS: Basophils % 0.3 %; Eosinophils # 0.1 K/mcL (0.0-0.6); Eosinophils % 0.8 %; Hematocrit 45.3 % (37.5-50.1); Immature Granulocytes % 0.3 % (0-4); Lymphocytes # 1.7 K/mcL (0.6-4.6); Lymphocytes % 22.5 %; Mean Corpuscular HGB Conc 33.1 g/dL (31.6-35.5); Mean Corpuscular Hemoglobin 24.6 pg (28.0-33.3); Mean Corpuscular Volume 74.3 fL (83.0-100.0); Mean Platelet Volume 9.3 fL (9.4-12.4); Monocytes # 0.5 K/mcL (0.0-1.3); Monocytes % 6.3 %; Neutrophils # 5.4 K/mcL (1.6-8.9); Platelet Count 391 K/mcL (140-400); Red Cell Distribution Width 13.7 % (11.5-14.5); Segmented Neutrophils % 69.8 %
[2017-09-01 11:11] LABS: Alanine Aminotransferase 12 Units/L (7-52); Albumin 5.2 g/dL (3.5-5.7); Alkaline Phosphatase 49 Units/L (34-104); Aspartate Amino Transferase 12 Units/L (13-39); BUN/Creatinine Ratio 14 (6-26); Bilirubin,Total 0.7 mg/dL (0.3-1.0); Blood Urea Nitrogen 13 mg/dL (6-20); Calcium 9.9 mg/dL (8.6-10.3); Carbon Dioxide 24 mEq/L (23-29); Chloride 105 mEq/L (98-107); Globulin 2.6 g/dL (2.4-3.5); Glucose 137 mg/dL (70-105); Osmolality,Calculated 288 (280-300); Potassium 4.4 mEq/L (3.5-5.1); Sodium 138 mEq/L (136-145); Total Protein 7.8 g/dL (6.4-8.9); eGFR For African Americans > 60 (> 60); eGFR For Non-African Americans > 60 (> 60)
[2017-09-01] MEDS: traZODone 50 MG TABLET PO PRN (20:14)
[2017-09-01] MEDS: hydrOXYzine pamoate 25 MG CAPSULE PO PRN (20:14)
[2017-09-02] MEDS: OLANZapine 10 MG TAB.RAPDIS PO SCH ×2 (09:05→21:39)
--- NOTE | 2017-09-02 10:37 | Psychiatry Progress Note ---
Date of Encounter: 09/02/17 Time of Encounter: 10:25 Subjective Interval history: Patient tells me that he is doing fine at this time. I then asked him to talk about what he is doing on the unit to pass the time. I have seen them journaling on the unit. He tells me that he is trying to write out his "will" but that he cannot get it perfectly. When he talks about his will, it does not mean that he has thoughts of dying. It is just his thoughts and beliefs on how he can save the world. He is very focus today again on saving all the people in the world that that is what Grupo and God of called upon him to do. He states he never meant to hurt anybody in that once people read his will, they will understand he did not do anything wrong to be arrested. He denies any suicidal homicidal ideation he denies any auditory or visual hallucinations. He states he is feeling calmer and he denies any racing thoughts just this preoccupation today once again with presybeterian. I discussed with him the possibility of increasing his medication further as today he received a 2nd increased dose, so potentially having increased tomorrow. He stated that he was fine with denied any's side effects of the medication. Review of Systems Psychiatric: Reports: auditory hallucinations, visual hallucinations, other ( Delusions) Results - Vital Signs Vital Signs: Temp Pulse Resp BP Pulse Ox 98.9 F 77 20 117/69 97 09/02/17 08:52 09/02/17 08:52 09/02/17 08:52 09/02/17 08:52 08/25/17 23:45 - Labs Labs: Laboratory Results - last 24 hr 09/01/17 09/01/17 09/01/17 10:31 10:31 10:35 WBC 7.7 RBC 6.10 H Hgb 15.0 Hct 45.3 MCV 74.3 L MCH 24.6 L MCHC 33.1 RDW 13.7 Plt Count 391 MPV 9.3 L Immature Gran % 0.3 Seg Neutrophils % 69.8 Lymphocytes % 22.5 Monocytes % 6.3 Eosinophils % 0.8 Basophils % 0.3 Neutrophils # 5.4 Lymphocytes # 1.7 Monocytes # 0.5 Eosinophils # 0.1 Basophils # 0.0 Sodium 138 Potassium 4.4 Chloride 105 Carbon Dioxide 24 BUN 13 Creatinine 0.91 Est GFR ( Amer) > 60 Est GFR (Non-Af Amer) > 60 BUN/Creatinine Ratio 14 Glucose 137 H Calculated Osmolality 288 Calcium 9.9 Total Bilirubin 0.7 AST 12 L ALT 12 Alkaline Phosphatase 49 Serum Total Protein 7.8 Albumin 5.2 Globulin 2.6 Albumin/Globulin Ratio 2.0 Urine Color Yellow Urine Clarity Clear Urine pH 6.5 Ur Specific [place] 1.012 Urine Protein Negative Urine Glucose (UA) Normal Urine Ketones Negative Urine Blood Negative Urine Nitrite Negative Urine Bilirubin Negative Urine Urobilinogen Normal Ur Leukocyte Esterase Negative Ur Culture Indicated? NO - Impressions Lab results are within normal limits. Assessment and Plan (1) Psychosis Current visit: Yes Status: Acute Risks, benefits, side effects, alternatives discussed w/pt: Yes (Continue Zyprexa as written. Potential increase in dose if not stabilizing) Patient agreeable to treatment: Yes Qualifiers: Psychosis type: unspecified psychosis type Qualified Code(s): F29 - Unspecified psychosis not due to a substance or known physiological condition Consult Discharge Plan - Plan Referrals: NONE,PCP [Primary Care Provider] - Psychiatry Exam - Constitutional Vitals: Temp Pulse Resp BP Pulse Ox 98.9 F 77 20 117/69 97 09/02/17 08:52 09/02/17 08:52 09/02/17 08:52 09/02/17 08:52 08/25/17 23:45 General appearance: age & developmentally appropriate - Musculoskeletal Gait: normal Station: slouched Strength & Tone: normal for patient - Psychiatric Patient Orientation: Yes Person, Yes Time, Yes Place Level of alertness: Alert Behavior: nervous Psychomotor activity: Normal Eye Contact: Diverts Contact Mood Description: Anxious Affect description: congruent with mood Speech Volume: Normal Speech pattern: normal rate, normal rhythm, normal tone Language & Vocabulary: consistent with education Thought Process: Tangential, Perseveration (on how to help people and save all mankind) Thought Content: Yes Mandaeism delusion Attention Span Ability: Capable of Focused Attention, Capable of Sustained Attention Patient Reliability: Questionable Historian Fund of knowledge: Yes abstraction ability Intelligence Estimate: Average Judgment: Limited Insight: Minimal
[2017-09-02] MEDS: traZODone 50 MG TABLET PO PRN (21:39)
[2017-09-02] MEDS: hydrOXYzine pamoate 25 MG CAPSULE PO PRN (21:39)
[2017-09-03] MEDS: OLANZapine 10 MG TAB.RAPDIS PO SCH ×2 (09:21→21:11)
--- NOTE | 2017-09-03 10:02 | Psychiatry Progress Note ---
Date of Encounter: 09/03/17 Time of Encounter: 10:00 Subjective Interval history: Is a 22-year-old male. The patient is a voluntary patient on the unit. His chief complaint: Is that he would like to turn himself in to remove the warrant on Tuesday. He feels that he can explain what he was doing at the [facility] and regarding the threats. History of present illness: The patient gives a history of no prior psychiatric treatment. He may been seen in a hospital in [place] for seizure. He may have had some prior beliefs that others recognized is unwarranted or excessive. However his presentation is less than 6 months since the index delusion. This is a grandiose delusion that he is on a mission from God. That others are being persecuted and things taken from them. And he is trying to set things right. Patient has ideas of reference feeling that certain music and activity is referred to him. He denies hearing voices or Patient reports ongoing cannabis use. He does not favor medical marijuana. 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 He does not feel that this helps her medical needs. Approximately one year ago the patient reports that he used LSD. That this caused trouble and that there are some flashbacks. He reports some unusual sensory phenomena with certain types of music. 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 Current visit: Yes Status: Acute Plan: Continue hospitalization, Close observation, Suicide Precautions per unit protocol, Encourage participation in unit milieu, Group Therapy, Monitor sleep Risks, benefits, side effects, alternatives discussed w/pt: Yes Patient agreeable to treatment: Yes (3) Hallucinogen dependence, uncomplicated Current visit: Yes Status: Resolved Plan: Continue hospitalization, Suicide Precautions per unit protocol, Family/ Supportive other meeting Risks, benefits, side effects, alternatives discussed w/pt: Yes Patient agreeable to treatment: Yes Consult Discharge Plan - Plan Referrals: NONE,PCP [Primary Care Provider] - Psychiatry Exam - Constitutional Vitals: Temp Pulse Resp BP Pulse Ox 98.1 F 98 16 125/88 97 09/03/17 09:00 09/03/17 09:00 09/03/17 09:00 09/03/17 09:00 08/25/17 23:45 General appearance: age & developmentally appropriate, well-groomed, well- nourished - Musculoskeletal Gait: normal Station: relaxed Strength & Tone: normal for patient - Psychiatric Patient Orientation: Yes Person, Yes Time, Yes Place, Yes Circumstance Level of alertness: Alert Behavior: calm, cooperative Psychomotor activity: Normal Eye Contact: Maintains Eye Contact Mood Description: Euthymic/stable Affect description: congruent with mood, full range Speech Volume: Loud Speech pattern: normal rate, normal rhythm, fluent Language & Vocabulary: consistent with education Thought Process: Loose Associations Thought Content: Yes Homicidal ideation, Yes Ideas of reference, Yes Paranoid delusion, Yes Holiness delusion, Yes Grandiose delusion Perceptual Disturbances: No Auditory hallucinations, No Visual hallucinations Attention Span Ability: Capable of Focused Attention Memory Description: Grossly Intact Patient Reliability: Questionable Historian Fund of knowledge: Yes average Intelligence Estimate: Average Judgment: Limited Insight: Minimal
[2017-09-03] MEDS: hydrOXYzine pamoate 25 MG CAPSULE PO PRN (21:11)
[2017-09-04] MEDS: OLANZapine 10 MG TAB.RAPDIS PO SCH ×2 (08:09→20:51)
--- NOTE | 2017-09-04 10:29 | Psychiatry Progress Note ---
Date of Encounter: 09/04/17 Time of Encounter: 10:15 Subjective Interval history: The patient showed me a document that he been working. He is a 22-year-old male and reports that he is working on a letter of wishes. He plans to have 2 witnesses approve of this. He feels that he has expended a lot of energy and that is why he is tired he notes some increase in appetite. On the unit the patient has continued to exhibit delusional grandiose and persecutory themes. He has ideas of reference for him to the persecution that he is not toward as it relates to others such as musicians artists veterans. The patient wishes to discuss his post discharge plans with the bilingual social worker and team early in the week. The document he showed me explain some of the reasoning behind his life and why did some things. To briefly summarize the document seems to indicate a systematize delusion. Patient is tolerating the current medicine ( FDA APPROVED MAXIMUM DOSE). I told him to continue to check his weight as weight gain can occur on this medicine. Usually it is weight gain that is accompanied by increased risk of diabetes and hyperlipidemia. Review of Systems Psychiatric: Reports: abnormal sleep pattern, visual hallucinations, other ( Delusions) Results - Vital Signs Vital Signs: Temp Pulse Resp BP Pulse Ox 97.9 F 74 18 112/75 97 09/04/17 09:00 09/04/17 09:00 09/04/17 09:00 09/04/17 09:00 08/25/17 23:45 Assessment and Plan (1) Schizophreniform disorder Current visit: Yes Status: Acute Plan: Continue hospitalization, Close observation, Suicide Precautions per unit protocol, Encourage participation in unit milieu, Group Therapy, Monitor sleep, Monitor appetite, Secure weapons, Family/Supportive other meeting Risks, benefits, side effects, alternatives discussed w/pt: Yes Patient agreeable to treatment: Yes (2) 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 Current visit: Yes Status: Acute Plan: Continue hospitalization, Close observation, Suicide Precautions per unit protocol, Encourage participation in unit milieu, Group Therapy, Monitor sleep, Monitor appetite, Secure weapons Risks, benefits, side effects, alternatives discussed w/pt: Yes Patient agreeable to treatment: Yes (3) Hallucinogen dependence, uncomplicated Current visit: Yes Status: Resolved Plan: Close observation, Family/Supportive other meeting Risks, benefits, side effects, alternatives discussed w/pt: Yes Patient agreeable to treatment : Yes Consult Discharge Plan - Plan Referrals: NONE,PCP [Primary Care Provider] - Psychiatry Exam - Constitutional Vitals: Temp Pulse Resp BP Pulse Ox 97.9 F 74 18 112/75 97 09/04/17 09:00 09/04/17 09:00 09/04/17 09:00 09/04/17 09:00 08/25/17 23:45 General appearance: age & developmentally appropriate, well-groomed, well- nourished - Musculoskeletal Gait: normal Station: relaxed Strength & Tone: normal for patient - Psychiatric Patient Orientation: Yes Person, Yes Time, Yes Place Level of alertness: Alert Behavior: calm, cooperative Psychomotor activity: Normal Eye Contact: Maintains Eye Contact Mood Description: Anxious Affect description: congruent with mood, anxious Speech Volume: Normal Speech pattern: normal rate, normal rhythm, normal tone, fluent, spontaneous Language & Vocabulary: consistent with education Thought Process: Linear, Goal Oriented, Tangential Thought Content: No Suicidal ideation, No Homicidal ideation, No Overt delusions , Yes Ideas of reference, Yes Grandiose delusion, Yes Obsessive thoughts Perceptual Disturbances: No Auditory hallucinations, Yes Visual hallucinations Attention Span Ability: Capable of Focused Attention Memory Description: Grossly Intact Patient Reliability: Reliable Historian Fund of knowledge: Yes abstraction ability, Yes aware of current events Intelligence Estimate: Average Judgment: Limited Insight: Partial
--- NOTE | 2017-09-05 07:41 | Discharge Summary ---
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 Status: Acute (6) Hallucinogen dependence, uncomplicated Status: Resolved Medications - Discharge Medications Benztropine [Cogentin] 1 mg PO Q4H PRN 30 Days tablet 09/05/17 [Rx] OLANZapine [Zyprexa Zydis] 10 mg PO BID 30 Days tab.rapdis 09/05/17 [Rx] hydrOXYzine pamoate [HydrOXYzine Pamoate] 25 mg PO TID PRN 30 Days capsule 02/12 [Rx] 3 Allergy/AdvReac Type Severity Reaction Status Date / Time No Known Allergies Allergy Verified 08/27/17 10:07 Results Procedures and tests throughout hospitalization: Completed Lab Orders Category Date Time Status CBC [Complete Blood Count] [HEME] Routine Lab 09/01/17 10:31 Completed Comprehensive Metabolic Panel Routine Lab 09/01/17 10:31 Completed UA w. reflex culture [Urinalysis Reflex Cult & Micro] [ Lab 09/01/17 10:35 Completed URIN] Stat Provider Date of admission: 08/26/17 02:58 Primary care physician: PCP NONE Discharging clinician: Brenden Green Psychiatry Exam - Constitutional Vitals: Temp Pulse Resp BP Pulse Ox 97.6 F 73 20 115/70 97 09/04/17 20:10 09/04/17 20:10 09/04/17 20:10 09/04/17 20:10 08/25/17 23:45 General appearance: age & developmentally appropriate, well-groomed, well- nourished - Musculoskeletal Gait: normal Station: relaxed Strength & Tone: normal for patient - Psychiatric Patient Orientation: Yes Person, Yes Time, Yes Place Level of alertness: Alert Behavior: calm, cooperative Psychomotor activity: Normal Eye Contact: Maintains Eye Contact Mood Description: Euthymic/stable Affect description: congruent with mood, full range Speech Volume: Normal Speech pattern: normal rate, normal rhythm, normal tone, fluent, spontaneous Language & Vocabulary: consistent with education Thought Process: Linear, Goal Oriented, Loose Associations, Tangential Thought Content: No Suicidal ideation, No Homicidal ideation, No Overt delusions , Yes Paranoid delusion, Yes Quaker delusion Perceptual Disturbances: No Auditory hallucinations, No Visual hallucinations Attention Span Ability: Capable of Focused Attention Memory Description: Grossly Intact Patient Reliability: Questionable Historian Fund of knowledge: Yes abstraction ability, Yes aware of current events Intelligence Estimate: Average Judgment: Limited Insight: Partial Hospital Course Hospital course: Mr. Ontiveros is a 22 year old male admitted from the ED for acute psychosis with delusion, hallucinations and congregational preoccupation. Patient was picked up by police from the community and brought in for evaluation. Patient is extremely psychotic and paranoid making statements. My music was stolen, I am the son of God, people are going to hell, I want to save the world. UDS was positive for THC. Patient denied any previous history of psychiatric treatment. He lives on his own, is homeless, no support. Would not talk about his family or friends because everybody lied to him. 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 Patient was difficult to interview redirect. Is a 22-year-old male. The patient is a voluntary patient on the unit. Pt noted that he would like to turn himself in to remove the warrant on Tuesday (today). He feels that he can explain what he was doing at the congregation and regarding the threats. Patient gives a history of no prior psychiatric treatment. He may been seen in a hospital in [place] for seizure. He may have had some prior beliefs that others recognized is unwarranted or excessive. However his presentation is less than 6 months since the index delusion. This is a grandiose delusion that he is on a mission from God. That others are being persecuted and things taken from them. And he is trying to set things right. Patient has ideas of reference feeling that certain music and activity is referred to him. Patient reports ongoing cannabis use. He does not favor medical marijuana. 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 He does not feel that this helps her medical needs. Approximately one year ago the patient reports that he used LSD. That this caused trouble and that there are some flashbacks. He reports some unusual sensory phenomena with certain types of music. The patient reports no side effects to the medication Pt stated I feel safe and comfortable on the unit. Pt denied any side effects to current medications. Pt was in agreement with current treatment plan. Pt noted that he is doing alright today. Pt noted he slept 8 hours broken night. Pt noted his appetite is its down. Pt rated his depression a 0, on a scale of zero to ten with ten being the worst and zero being none. Pt rate his anxiety a 10....since I am turing myself in, on the same scale. Pt denied any auditory or visual hallucinations. Pt denied any current thoughts to harm himself or anyone else. Pt was in agreement with his current discharge plan. No TD noted, AIMS=0 Assessment/Plan 1.Interval hx 2.Continue current medications 3.Review current labs 4.Pt had an opportunity to ask questions and discuss current treatment plan. 5.Supportive therapy was provided 6.Pt encouraged to consider group or individual therapy 7.Pt was in agreement with treatment plan. 8.Pt was educated on the risks benefits and side effects of current medications. 9. PT was educated on current treatment plan including D/C planning pt was in agreement Time spent discussing smoking cessation with patient: 3 to 10 minutes Does patient wish to continue nicotine replacement upon disc: Yes - Time Spent with Patient Total time spent providing and/or coordinating discharge services: Less than 30 minutes Assessment and Plan - Patient/Caregiver Discharge Instructions Activity: resume usual activities as tolerated Diet: regular diet - Follow up Plan Follow up with: NONE,PCP [Primary Care Provider] - Overall status at discharge: Stable Disposition: Home, Self-Care Quality - Multiple Antipsychotics Patient discharged on 2 or more antipsychotic medications: No - Justification Documentation of: No documentation of justification (pt currently D/C on one antipsychotic medication) Procedures - Procedures Procedures: Medication Management, Crisis Stabilization, Supportive Therapy, Psychoeducational Therapy
[2017-09-05] MEDS: OLANZapine 10 MG TAB.RAPDIS PO SCH (08:58)
[2017-09-05 09:30] VITALS: BP 121/73
== END 2017-09-05 13:30 | disposition home or self-care (01) | DRG 776 ==
LOC: EMEROO 22:20 → SUATTDRO 08-26 02:58 → 1ANU 08-26 02:58
PROVIDERS: ADMIT Psychiatry & Neurology Psychiatry; ATTEND Psychiatry & Neurology Forensic Psychiatry